=== PATIENT | female | born 1990 | race Caucasian/White ===

== ENCOUNTER 2016-11-06 23:21 | Emergency (ER) | payer SELFPAY ==
[~2016-11-06] VITALS: Ht 172.7 cm; Wt 65.0 kg
[2016-11-06 23:22] VITALS: BP 127/69; PULSE 96; RESP 16; TEMP 98.9; O2SAT 96
[2016-11-06] MEDS ORDERED: predniSONE 20 MG TAB PO ONE (23:45)
[2016-11-06] MEDS ORDERED: RESP: ALBUTEROL 2.5 MG/3 ML NEB (SCH) INH ONE (23:45)
--- NOTE | 2016-11-06 23:53 | PD ---
HPI Chief Complaint: Cold / Flu Symptoms Time Seen by Provider: 23:51 Travel History International Travel<30 days: No Contact w/Intl Traveler<30days: No Traveled to known affect area: No History of Present Illness HPI 25-year-old black female presents to emergency Department with complaints of "bronchitis". She states that she's been sick now for a week and a half. She has had congestion, cough, sore throat, shortness of breath, occasional wheezing , pleuritic chest wall pain, color sputum and general malaise. She denies any nausea vomiting. No abdominal pain or diarrhea. No dysuria or frequency. PFSH Past Medical History Medical History: Denies Significant Hx Tetanus Vaccination: < 5 Years ?: Not Past Surgical History Surgical History: No Previous Surgery Social History Alcohol Use: No Tobacco Use: No Substance Use: No Allergies-Medications (Allergen,Severity, Reaction): Coded Allergies: No Known Allergies (Unverified , 11/06/16) Reported Meds & Prescriptions Reported Meds & Active Scripts Active Proventil Hfa 6.7 GM Inh (Albuterol Sulfate) 90 Mcg/Act Aer 2 Puff INH Q4-6H PRN Deltasone (Prednisone) 20 Mg Tab 20 Mg PO TID Zithromax (Azithromycin) 250 Mg Tab 250 Mg PO DIRECTED Take 2 tabs (500 mg) on day 1 then 1 tab daily x 4 days. Review of Systems Except as stated in HPI: all other systems reviewed are Neg Physical Exam Narrative GENERAL: Well-developed, well-nourished in no acute distress. Nontoxic appearing. HEAD: Normocephalic, atraumatic. EYES: Pupils equal round and reactive. Extraocular motions intact. No scleral icterus. No injection or drainage. ENT: TMs clear without erythema. The external auditory canals clear. Nose: clear . Posterior pharynx is pink and moist. No tonsillar edema or exudate. Uvula midline. Airway patent. NECK: Trachea midline.Supple, nontender, moves head freely. No central bony tenderness or spasm. CARDIOVASCULAR: Regular rate and rhythm without murmurs, gallops, or rubs. RESPIRATORY: Few scattered rhonchi. Fine end expiratory wheezes. No respiratory distress. No Rales. GASTROINTESTINAL: Abdomen soft, non-tender, nondistended. No hepato-splenomegaly , or palpable masses. No guarding. EXTREMITIES: No clubbing, cyanosis, or edema. No joint tenderness, effusion, or edema noted. BACK: Nontender without deformity or crepitance. No flank tenderness. Data Data Last Documented VS Vital Signs Date Time Temp Pulse Resp B/P Pulse Ox O2 Delivery O2 Flow Rate FiO2 11/06/16 23:44 19 11/06/16 23:22 98.9 96 127/69 96 Orders Prednisone (Deltasone) (11/06/16 23:45) Albuterol Neb (Albuterol Neb) (11/06/16 23:45) MDM Medical Decision Making Medical Screen Exam Complete: Yes Emergency Medical Condition: Yes Medical Record Reviewed: Yes Differential Diagnosis MDM: High Differential diagnoses: Pneumonia, bronchitis, URI, asthma, RAD, legionnaire's disease, SARS, ARDS, influenza, bronchiolitis, RSV,PE,CHF Narrative Course Patient's given 60 mg of prednisone by mouth and albuterol nebulizer. The patient is reexamined. She has better air movement but more wheezing is noted. She is feeling improved. This is bronchitis, reactive airway disease Diagnosis Primary Impression: Bronchitis Additional Impression: Reactive airway disease Qualified Code: J45.20 - Reactive airway disease, mild intermittent, uncomplicated Patient Instructions: General Instructions Additional Instructions: Rest. Increase fluids. Tylenol and Advil. Robitussin-DM. Zithromax, prednisone, and albuterol. Followup with your Dr. in one week. Return to the ER for any problems. Med/Other Pt SpecificInfo: Prescription(s) given Scripts Albuterol 6.7 GM Inh (Proventil Hfa 6.7 GM Inh)90 Mcg/Act Aer2 Puff INH Q4-6H PRN (SHORTNESS OF BREATH) #1 INHALER Prov:Amado Pierre MD 11/07/16 Prednisone (Deltasone)20 Mg Tab20 Mg PO TID #15 TAB Prov:Amado Pierre MD 11/07/16 Azithromycin (Zithromax)250 Mg [id number] Mg PO DIRECTED #6 TAB Take 2 tabs (500 mg) on day 1 then 1 tab daily x 4 days. Prov:Amado Pierre MD 11/07/16 Disposition: 01 DISCHARGE HOME Condition: Stable Justin Gallagher Nov 06, 2016 23:53
[2016-11-07] MEDS ORDERED: PRED-503 PO (00:06)
[2016-11-07] MEDS ORDERED: ALBU6.7H INH (00:06)
[2016-11-07] MEDS ORDERED: ZITH250T PO (00:06)
== END 2016-11-07 00:34 | disposition home or self-care (01) ==
LOC: NEPB 23:21
DX: J45.20 Mild intermittent asthma, uncomplicated (principal)
CPT/HCPCS: 94664; 99284; J7512; J7613